=== PATIENT | female | born 1995 | race African-American/Black ===

== ENCOUNTER 2019-07-02 00:47 | Emergency (ER) | payer SELFPAY ==
--- NOTE | ~2019-07-02 | US_ITS ---
EXAMINATION: US OB <= 14 weeks fetus DATE: 07/02/2019 03:03 INDICATION: Vaginal bleeding during first trimester of . TECHNIQUE: Real-time pelvic ultrasound utilizing both a transvaginal and transabdominal probe was pe rformed. The interpreting radiologist was not present for the study. COMPARISON: None. FINDINGS: The uterus measures 10.2 x 8.1 x 8.9 cm. There is an intrauterine gestational sac. A single fetus is identified. The crown rump length measures 4.3, which correlates with an estimated gestational age o f 11 weeks and 1 days. heart motion is identified measuring 161 beats per minute (bpm) by M-mod e Doppler.There are couple small subchorionic hematomas which measure 14 x 7 x 6 mm and 7 x 6 x 3 mm. The right ovary is not visualized. The left ovary measures 2.2 x 1.2 x 1.2 cm. Vascular flow at the l eft ovary on color Doppler. There is no free fluid in the pelvis. IMPRESSION: 1. Single living fetus with heart of 161 bpm. 2. Gestational age by ultrasound of 11 weeks 1 day(s) +/- 7 day(s) with ultrasound estimated date of delivery (DELFINO) of 01/20/2020. 3. A couple small subchorionic hematomas. Reviewed, dictated and finalized at location A. IMPRESSION: 1. Single living fetus with heart of 161 bpm. 2. Gestational age by ultrasound of 11 weeks 1 day(s) +/- 7 day(s) with ultras ound estimated date of delivery (DELFINO) of 01/20/2020. 3. A couple small subchorionic hematomas.
--- NOTE | 2019-07-02 00:49 | ED.GENADULT ---
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 Patient believes she is approximately 2 months . 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 Patient has history of 2 planned abortions. Patient developed acute onset of bright red vaginal bleeding this evening. No recent falls, trauma or recent vaginal intercourse. Patient states she was treated for bacterial vaginosis last week at an urgent care. She denies any pelvic pain, back pain, dysuria or frequency. No nausea or vomiting. Related Data Allergies Allergy/AdvReac Type Severity Reaction Status Date / Time No Known Allergies Allergy Verified 07/02/19 00:59 Review of Systems Review of Systems: Narrative: CONSTITUTIONAL: Denies fever, chills, or sweats. ENT: Denies rhinorrhea, congestion, sore throat, or otalgia. CARDIOVASCULAR: Denies chest pain, palpitations, or edema. RESPIRATORY: Denies cough or dyspnea. GASTROINTESTINAL: Denies abdominal pain, nausea, vomiting, or diarrhea. GENITOURINARY: Denies dysuria or hematuria. Reports vaginal bleeding. SKIN: Denies rash or itching. MUSCULOSKELETAL: Denies back pain, joint pain, or myalgia. NEUROLOGIC: Denies headache, numbness, or weakness. [facility] Past Medical History Medical History (Updated 07/02/19 @ 03:23 by Nicky Power MD) history Bacterial vaginosis Surgical History Surgical History (Updated 07/02/19 @ 03:16 by Nicky Power MD) No pertinent past surgical history Social History Social History (Updated 07/02/19 @ 03:17 by Nicky Power MD) Smoking status: Never smoker Alcohol intake: never Substance use: never Living arrangements: with family Gender identity (if verbalized by the patient): Female Exam Narrative: Exam Narrative: GENERAL: Awake, alert, conversant HEAD: Normocephalic, atraumatic. EYES: PERRLA and EOMI. ENT: Nares clear, no rhinorrhea or epistaxis. Mucous membranes moist. NECK: Supple. CHEST: No respiratory distress, breathing even and non labored HEART: Regular rate, sinus rhythm ABDOMEN:Non distended, non tender Pelvic exam: Labia majora and minora normal without lesions. Vagina with blood present. No large blood clots. Cervix is not dilated. No visualized products of conception. No cervical motion tenderness. No adnexal tenderness or fullness bilaterally. No discharge present. EXTREMITIES: Normal range of motion. No edema. SKIN: Warm, dry, no rash. NEURO:No focal deficits. Alert and oriented x3 Course Vital Signs Vital signs: Vital Signs Temperature 36.9 C 07/02/19 00:57 Pulse Rate 70 07/02/19 00:57 Respiratory Rate 19 07/02/19 00:57 Blood Pressure 130/77 07/02/19 00:57 Pulse Oximetry 100 07/02/19 00:57 Temperature 36.9 C 07/02/19 00:57 Pulse Rate 74 07/02/19 02:58 Respiratory Rate 19 07/02/19 02:58 Blood Pressure 115/67 07/02/19 02:58 Pulse Oximetry 100 07/02/19 02:58 Medical Decision Making [facility] Narrative Medical decision making narrative: Patient presented for evaluation in the setting of vaginal bleeding in first trimester . At the time of initial assessment, ABCs are intact and vital signs are stable. Pelvic exam shows minimal bleeding, no brisk bleeding, closed cervix without evidence of products of conception. Patient has no pain. Laboratory results show mild anemia which patient reports she has a history of. No thrombocytopenia. Patient has O+ blood type, will not require RhoGam. No signs of cervicitis. No UTI. Patient was subchorionic hematoma which is likely the cause of her bleeding. Patient was advised pelvic rest, no vaginal intercours
[2019-07-02 00:57] VITALS: BP 130/77; PULSE 70; RESP 19; TEMP 36.9; O2SAT 100
[2019-07-02 01:08] LABS: Basophils Absolute Auto 0.1 K/mm3 (0.0-0.1); Basophils Percent Auto 0.4 % (0.2-1.2); Eosinophils Absolute Auto 0.2 K/mm3 (0-0.3); Eosinophils Percent Auto 1.8 % (0-4.4); Hematocrit 33.2 % (37.0-47.0); Hemoglobin 10.5 g/dL (12.0-15.0); Immature Granulocyte Absolute 0.06 K/mm3 (0.00-0.031); Immature Granulocyte Percent A 0.5 % (0-0.5); Lymphocytes Absolute Auto 3.87 K/mm3 (0.9-3.2); Mean Corpuscular HGB Conc 31.6 g/dl (32-36); Mean Corpuscular Hemoglobin 25.6 pg (26-34); Mean Platelet Volume 12.2 fl (7.4-10.4); Monocytes Percent Auto 8.3 % (2.6-8.5); Neutrophils Absolute Auto 7.2 K/mm3 (1.3-6.7); Platelet Count Result 227 k/mm3 (150-375); Red Cell Distribution Width 16.8 % (11.5-14.5); White Blood Count 12.5 K/mm3 (4.5-10.0)
[2019-07-02 01:20] LABS: Alanine Aminotransferase 11 U/L (4-35); Albumin Level 4.6 g/dL (3.5-5.1); Alkaline Phosphatase 56 U/L (38-126); Aspartate Amino Transferase 20 U/L (14-36); Bilirubin,Total 0.1 mg/dL (0.2-1.3); Blood Urea Nitrogen 14 mg/dL (7-17); Calcium 10.4 mg/dL (8.4-10.2); Carbon Dioxide 23 mmol/L (22-30); Chloride 101 mmol/L (98-107); Estimated CRCL calculation 105 ml/min; Estimated Glomerular Filt Rate > 60; Glucose 88 mg/dL (65-105); Potassium 3.4 mmol/L (3.4-5.0); Sodium 135 mmol/L (137-145)
[2019-07-02] MEDS: SODIUM CHLORIDE 0.9% IV 1,000 ML 999 ML IV CONT (01:24)
[2019-07-02 01:33] LABS: Add Urine Microscopic? YES; Appearance Urine Clear (Clear); Bacteria Urine Trace /hpf; Bilirubin Urine Negative (Negative); Blood Urine 2+ (Negative); Color Urine Yellow (Yellow); Glucose Urine UA Negative (Negative); Ketones Urine Trace mg/dL (Negative); Leukocyte Esterase Ur Negative LEU/UL (Negative); Mucus Urine Rare /lpf; Nitrate Urine Negative (Negative); Protein Urine 1+ mg/dL (Negative); RBC Urine >75 /hpf (0-2); Squamous Epithelial Cell Urine Many /hpf (Few); Urobilinogen Urine Negative mg/dL (<2.0)
[2019-07-02 01:44] LABS: Specific Grav Ur 1.034 (1.001-1.035)
[2019-07-02 02:58] VITALS: BP 115/67; PULSE 74; RESP 19; O2SAT 100
[2019-07-02 03:33] VITALS: BP 116/76; PULSE 74; RESP 19; TEMP 36.7; O2SAT 100
== END 2019-07-02 03:35 | disposition home or self-care (01) ==
PROVIDERS: Emergency Provider Emergency Medicine
DX: O46.91 Antepartum hemorrhage, unspecified, first trimester (principal); Z3A.11 11 weeks gestation of pregnancy
CPT/HCPCS: 36415; 76801; 80053; 81001; 81025; 84702; 85025; 85461; 87070; 87491; 87591; 87808; 96360; 99284; J7030

== ENCOUNTER 2019-08-20 13:33 | Outpatient (CLI) | payer BC, SELFPAY ==
[2019-08-20 14:46] LABS: Hematocrit 30.2 % (37.0-47.0); Hemoglobin 9.8 g/dL (12.0-15.0); Mean Corpuscular HGB Conc 32.5 g/dl (32-36); Mean Corpuscular Hemoglobin 26.3 pg (26-34); Mean Platelet Volume 12.1 fl (7.4-10.4); Platelet Count Result 208 k/mm3 (150-375); Red Blood Count 3.73 M/mm3 (4.2-5.4); Red Cell Distribution Width 15.3 % (11.5-14.5); White Blood Count 10.2 K/mm3 (4.5-10.0)
[2019-08-20 16:04] LABS: Hepatitis B Surface Antigen Negative (Negative); Rubella IgG Antibody 17.2 IU/ML
[2019-08-20 16:08] LABS: HIV 1/2 Ab P24 Ag Result Negative (Negative)
[2019-08-21 06:57] LABS: Rapid Plasma Reagin Non-Reactive (NonReactive)
[2019-08-25 12:48] LABS: Varicella IgG Antibody <135.00 Index (>=165.00); Varicella IgM Antibody 1.09 (<=0.90)
[2019-08-28 21:52] LABS: CF Result NEGATIVE (NEGATIVE); Ethnicity NG
== END 2019-08-20 13:34 | disposition home or self-care (01) ==
PROVIDERS: Visit Provider Obstetrics & Gynecology
DX: Z34.92 Encounter for supervision of normal pregnancy, unspecified, second trimester (principal); Z3A.00 Weeks of gestation of pregnancy not specified
CPT/HCPCS: 36415; 81220; 81329; 84702; 85027; 85461; 85660; 86592; 86703; 86747; 86762; 86787; 87086; 87088; 87340; G0432

== ENCOUNTER 2019-10-27 14:03 | Observation (INO) | payer BC, SELFPAY ==
[2019-10-27] VITALS (8 sets, daily range): BP systolic 114–148; BP diastolic 57–81; PULSE 73–78; BMI 24.5
--- NOTE | 2019-10-27 14:30 | OBADM ---
This patient, Dilcia Villafana, admitted to the OB room OB Post 113 for observation. Patient/family oriented to hospital policies and general routines including ID bracelet, bed and alarms, visiting hours, pain management, procedures, bathroom and other care routines, personal items, smoking policy, room service/diet, and visiting hours. Patient/Family are encouraged to report perceived risks to care and to ask questions if they do not understand what they are told or what they should do.
[2019-10-27 15:44] LABS: Add Urine Microscopic? YES; Appearance Urine Clear (Clear); Bacteria Urine Trace /hpf; Bilirubin Urine Negative (Negative); Blood Urine Negative (Negative); Color Urine Yellow (Yellow); Glucose Urine UA Negative (Negative); Ketones Urine Negative (Negative); Leukocyte Esterase Ur Negative LEU/UL (NEGATIVE); Mucus Urine Rare /lpf; Nitrate Urine Negative (Negative); Protein Urine 1+ mg/dL (Negative); Squamous Epithelial Cell Urine Few /hpf (Few); Urobilinogen Urine Negative mg/dL (<2.0); WBC Urine 0-3 /hpf (0-3)
[2019-10-27 15:54] LABS: Specific Grav Ur 1.032 (1.001-1.035)
--- NOTE | 2019-10-27 17:00 | P.PNOB_ITS ---
OB - Triage/Final Diagnosis Evaluation Laboratory results: Laboratory Tests 10/27/19 15:31 Urine Color Yellow Urine Appearance Clear Urine pH 6.0 Ur Specific [place] 1.032 Urine Protein 1+ H Urine Glucose (UA) Negative Urine Ketones Negative Ur Blood (Man) Negative Urine Nitrate Negative Urine Bilirubin Negative Urine Urobilinogen Negative Ur Leukocyte Esterase Negative Urine WBC 0-3 Ur Squamous Epith Cells Few Urine Bacteria Trace Urine Mucus Rare Final Diagnosis (1) Abdominal pain affecting , antepartum: Code(s): O26.899 - Other specified related conditions, unspecified trimester; R10.9 - Unspecified abdominal pain Status: Acute
== END 2019-10-27 16:35 | disposition home or self-care (01) ==
PROVIDERS: Admitting Provider Obstetrics & Gynecology; Visit Provider Obstetrics & Gynecology
DX: O26.892 Other specified pregnancy related conditions, second trimester (principal); R10.9 Unspecified abdominal pain; Z3A.27 27 weeks gestation of pregnancy
CPT/HCPCS: 81001; 87086; 87088; G0378; G0379

== ENCOUNTER 2019-11-17 11:12 | Outpatient (CLI) | payer BC, SELFPAY ==
[2019-11-17 13:36] LABS: Hematocrit 28.8 % (37.0-47.0); Hemoglobin 8.9 g/dL (12.0-15.0); Mean Corpuscular HGB Conc 30.9 g/dl (32-36); Mean Corpuscular Hemoglobin 24.9 pg (26-34); Mean Corpuscular Volume 80.7 fl (80-100); Mean Platelet Volume 12.5 fl (7.4-10.4); Platelet Count Result 213 k/mm3 (150-375); Red Blood Count 3.57 M/mm3 (4.2-5.4); Red Cell Distribution Width 15.5 % (11.5-14.5); White Blood Count 8.9 K/mm3 (4.5-10.0)
[2019-11-17 13:51] LABS: Glucose 1 Hour PP 50gm Dose 74 mg/dL
[2019-11-17 14:28] LABS: HIV 1/2 Ab P24 Ag Result Negative (Negative)
== END 2019-11-17 11:13 | disposition home or self-care (01) ==
PROVIDERS: Visit Provider Obstetrics & Gynecology
DX: Z34.92 Encounter for supervision of normal pregnancy, unspecified, second trimester (principal); Z3A.00 Weeks of gestation of pregnancy not specified
CPT/HCPCS: 36415; 82947; 85027; 86703; G0432

== ENCOUNTER 2020-01-17 23:24 | Observation (INO) | payer BC, SELFPAY ==
--- NOTE | 2020-01-17 23:40 | PM.OBTRLD ---
OB - Triage/Final Diagnosis Final Diagnosis (1) False labor after 37 completed weeks of gestation: Code(s): O47.1 - False labor at or after 37 completed weeks of gestation Status: Acute
--- NOTE | 2020-01-18 03:06 | LDADM ---
This patient, Dilcia Villafana, was admitted to Labor/Delivery/Recovery 107 on 01/17/20 at 23:24. Plans for labor, pain management and were discussed with patient. Patient/family oriented to hospital policies and general routines including ID bracelet, bed and alarms, visiting hours, pain management, procedures, bathroom and other care routines, personal items, smoking policy, room service/diet and guest tray routines, infant security routines, and visiting hours. Patient/Family are encouraged to report perceived risks to care and to ask questions if they do not understand what they are told or what they should do. See OBIX for further documentation.
== END 2020-01-18 03:29 | disposition home or self-care (01) ==
PROVIDERS: Admitting Provider Obstetrics & Gynecology; Visit Provider Obstetrics & Gynecology
DX: O47.9 False labor, unspecified (principal); Z3A.00 Weeks of gestation of pregnancy not specified
CPT/HCPCS: G0378; G0379

== ENCOUNTER 2020-01-18 11:38 | Inpatient (IN) | payer BC, SELFPAY ==
[2020-01-18] VITALS (62 sets, daily range): BP systolic 67–136; BP diastolic 42–80; PULSE 66–106; RESP 18; TEMP 36.6–37; O2SAT 91–100
[2020-01-18 12:23] LABS: Basophils Percent Auto 0.1 % (0.2-1.2); Hematocrit 35.4 % (37.0-47.0); Hemoglobin 11.7 g/dL (12.0-15.0); Immature Granulocyte Percent A 0.7 % (0-0.5); Immature Platelet Fraction Pct 11.8 % (0.9-11.2); Lymphocytes Absolute Auto 1.01 K/mm3 (0.9-3.2); Lymphocytes Percent Auto 7.2 % (18.3-44.2); Mean Corpuscular HGB Conc 33.1 g/dl (32-36); Mean Corpuscular Hemoglobin 26.7 pg (26-34); Mean Corpuscular Volume 80.8 fl (80-100); Monocytes Absolute Auto 0.3 K/mm3 (0.1-0.6); Monocytes Percent Auto 2.2 % (2.6-8.5); Neutrophils Absolute Auto 12.6 K/mm3 (1.3-6.7); Neutrophils Percent Auto 89.8 % (45.5-73.1); Platelet Count Result 187 k/mm3 (150-375); Red Blood Count 4.38 M/mm3 (4.2-5.4); Red Cell Distribution Width 20.8 % (11.5-14.5); White Blood Count 14.1 K/mm3 (4.5-10.0)
[2020-01-18] MEDS: LACTATED RINGERS 1,000 ML 125 ML IV CONT ×3 (12:28→14:00)
[2020-01-18] MEDS: fentaNYL CITRATE INJ (*CRX) 100 MCG/2 ML VIAL IV PUSH (12:29)
--- NOTE | 2020-01-18 13:01 | WPDANESEPP ---
Anes - Eval Pre Procedure Procedure: labor epidural Date/Time: 01/18/20 13:01 Surgeon: Chelsey Paulino Preop Diagnosis: pain during labor Pre Op Diagnosis: Contractions Patient Data Age: 24 Gender: F Height: Weight: Last Vital Signs Pulse 92 01/18/20 13:01 BP 121/63 01/18/20 13:01 Pulse Ox 100 01/18/20 13:01 Allergies Allergy/AdvReac Type Severity Reaction Status Date / Time No Known Allergies Allergy Verified 07/02/19 00:59 Home Medications Medication Instructions Recorded Confirmed Type PNV cmb#95-ferrous fumarate-FA 1 tablet PO DAILY 01/16/20 01/16/20 History [] albuterol sulfate 2 puff INHALATION QID PRN 01/16/20 01/16/20 History famotidine 20 mg PO DAILY 01/16/20 01/16/20 History ferrous sulfate [Iron (ferrous 325 mg PO TID 01/16/20 01/16/20 History sulfate)] magnesium oxide 400 mg PO DAILY 01/16/20 01/16/20 History ondansetron HCl [Zofran] 4 mg PO Q8H PRN 01/16/20 01/16/20 History Laboratory Tests 01/18/20 01/18/20 01/18/20 12:13 12:13 12:13 WBC 14.1 K/mm3 H K/mm3 (4.5-10.0) RBC 4.38 M/mm3 M/mm3 (4.2-5.4) Hgb 11.7 g/dL L g/dL (12.0-15.0) Hct 35.4 % L % (37.0-47.0) MCV 80.8 fl fl (80-100) MCH 26.7 pg pg (26-34) MCHC 33.1 g/dl g/dl (32-36) RDW 20.8 % H % (11.5-14.5) Plt Count 187 k/mm3 k/mm3 (150-375) MPV TNP Immature Gran % (Auto) 0.7 % H % (0-0.5) Neut % (Auto) 89.8 % H % (45.5-73.1) Lymph % (Auto) 7.2 % L % (18.3-44.2) [place] % (Auto) 2.2 % L % (2.6-8.5) Eos % (Auto) 0.0 % % (0-4.4) Baso % (Auto) 0.1 % L % (0.2-1.2) Lymph # (Auto) 1.01 K/mm3 K/mm3 (0.9-3.2) [place] # (Auto) 0.3 K/mm3 K/mm3 (0.1-0.6) Eos # (Auto) 0.0 K/mm3 K/mm3 (0-0.3) Baso # (Auto) 0.0 K/mm3 K/mm3 (0.0-0.1) Abs Immat Gran (auto) 0.10 K/mm3 H K/mm3 (0.00-0.031) Absolute Neuts (auto) 12.6 K/mm3 H K/mm3 (1.3-6.7) Absolute Nucleated RBC 0.0 K/mm3 K/mm3 (0.0-0.012) Nucleated RBC % 0.0 % % (0.0-0.2) % Immature Plt Fraction 11.8 % H % (0.9-11.2) RPR Pending Blood Type O Positive Antibody Screen Negative : gestational age (DELFINO 01/19) Patient hx anesthesia problems: none Family hx anesthesia problems: none PMFSH Past Medical History Medical History (Updated 01/18/20 @ 13:02 by Virgil Valencia CRNA) history Asthma Bacterial vaginosis Surgical History Surgical History (Updated 07/02/19 @ 03:16 by Nicky Power MD) No pertinent past surgical history Family History Family History (Updated 01/16/20 @ 12:14 by Priya Child RN) Mother Hypotension Father Colon cancer Social History Social History (Updated 07/02/19 @ 03:17 by Nicky Power MD) Smoking status: Never smoker Alcohol intake: never Substance use: never Gender identity (if verbalized by the patient): Female Spiritual care concerns: No Exam Day of Procedure 01/18/20 13:01 Patient weight: normal Heart: regular rate and rhythm Lungs: clear to auscultation and normal air movement Neurological: alert and oriented
--- NOTE | 2020-01-18 13:19 | LDADM ---
This patient, Dilcia Villafana, was admitted to Labor/Delivery/Recovery 106 on 01/18/20 at 11:38. Plans for labor, pain management and were discussed with patient. Patient/family oriented to hospital policies and general routines including ID bracelet, bed and alarms, visiting hours, pain management, procedures, bathroom and other care routines, personal items, smoking policy, room service/diet and guest tray routines, infant security routines, and visiting hours. Patient/Family are encouraged to report perceived risks to care and to ask questions if they do not understand what they are told or what they should do. See OBIX for further documentation.
--- NOTE | 2020-01-18 13:56 | PM.IMHP ---
H&P: HPI History of Present Illness Date/Time: 01/18/20 13:56 Chief complaint: Contractions Narrative: Dilcia Villafana is a 24 yo @ 39.5wks (DELFINO 01/20/20) who presented to L&D in active labor; 6cm dilated, requesting epidural. She denies vaginal bleeding or leakage of fluid; good movement. She has had regular care w/o issues. Her is complicated by: - Anemia on iron BID - Varicella non-immune Review of Systems Constitutional: Constitutional: Denies chills and Denies fever(s) Eyes: Eyes: Denies blurry vision Cardiovascular: Cardiovascular: Denies chest pain and Denies rapid heart rate Respiratory: Respiratory: Denies cough and Denies dyspnea Gastrointestinal: Gastrointestinal: Reports abdominal pain, Denies nausea and Denies vomiting Genitourinary: Genitourinary: Denies vaginal discharge Neurologic: Denies headache(s) Psychiatric: Psychiatric: Denies anxiety and Denies depression [facility] Past Medical History Medical History history Asthma Bacterial vaginosis Surgical History Surgical History No pertinent past surgical history Family History Family History Mother Hypotension Father Colon cancer Social History Social History Smoking status: Never smoker Alcohol intake: never Substance use: never Gender identity (if verbalized by the patient): Female Spiritual care concerns: No Meds Home Medications and Allergies Home Medications Medication Instructions Recorded Confirmed Type PNV cmb#95-ferrous fumarate-FA 1 tablet PO DAILY 01/16/20 01/16/20 History [] albuterol sulfate 2 puff INHALATION QID PRN 01/16/20 01/16/20 History famotidine 20 mg PO DAILY 01/16/20 01/16/20 History ferrous sulfate [Iron (ferrous 325 mg PO TID 01/16/20 01/16/20 History sulfate)] magnesium oxide 400 mg PO DAILY 01/16/20 01/16/20 History ondansetron HCl [Zofran] 4 mg PO Q8H PRN 01/16/20 01/16/20 History Allergies Allergy/AdvReac Type Severity Reaction Status Date / Time No Known Allergies Allergy Verified 07/02/19 00:59 Vital Signs Vital Signs - 24 hr 01/18/20 12:08 01/18/20 12:16 01/18/20 12:31 Pulse Rate 77 81 76 Blood Pressure 119/69 122/67 128/80 Pulse Oximetry 01/18/20 12:46 01/18/20 12:51 01/18/20 12:52 Pulse Rate 87 80 79 Blood Pressure 136/69 130/75 130/67 Pulse Oximetry 01/18/20 12:53 01/18/20 12:56 01/18/20 12:58 Pulse Rate 84 84 90 Blood Pressure 122/65 117/69 119/59 L Pulse Oximetry 100 01/18/20 13:01 01/18/20 13:03 01/18/20 13:06 Pulse Rate 92 79 86 Blood Pressure 121/63 121/65 114/60 Pulse Oximetry 100 100 01/18/20 13:08 01/18/20 13:11 01/18/20 13:13 Pulse Rate 93 88 84 Blood Pressure 116/65 120/67 111/72 Pulse Oximetry 100 01/18/20 13:16 01/18/20 13:18 01/18/20 13:21 Pulse Rate 86 82 77 Blood Pressure 112/64 114/65 114/57 L Pulse Oximetry 100 100 01/18/20 13:23 01/18/20 13:26 01/18/20 13:28 Pulse Rate 84 81 84 Blood Pressure 115/69 117/62 112/68 Pulse Oximetry 100 01/18/20 13:31 01/18/20 13:36 01/18/20 13:41 Pulse Rate 85 Blood Pressure 67/51 L Pulse Oximetry 91 100 99 01/18/20 13:46 01/18/20 13:51 Pulse Rate 89 Blood Pressure 114/72 Pulse Oximetry 96 96 Exam Const: General: cooperative, healthy appearing, comfortable and no acute distress Resp: Effort & Inspection: normal respiratory effort and able to speak in complete sentences Cardio: Rate: regular rate : Other: FHT's: 130's/ mod rudolph/ + accels/ no decels - cat 1 TOCO: ctx's q 3-5min Cervix: 7/C/0 Membranes: AROM, clear 1345 Postion: cephalic Skin: General skin exam: normal color Neuro: General: patient oriented x3 Extrem: General: normal
[2020-01-18] MEDS: OXYTOCIN 30 UNITS/NS 500 ML 30 UNITS/500 ML BAG IV CONT (13:57)
--- NOTE | 2020-01-18 14:03 | WPDHPUPDATE1 ---
History and Physical Update Update Date/Time: 01/18/20 14:03 History and Physical has been reviewed, including an updated exam of the patient. There are NO changes in the patient's condition. Risks, benefits, and alternatives have been discussed and questions answered. Patient agrees to proceed with procedure.
--- NOTE | 2020-01-18 15:22 | PM.OBPRVD ---
OB - Delivery Note Procedure Delivery date: 01/18/20 Intrapartal events: None Induction method: none Delivery augmentation: rupture of membranes and pitocin Delivery monitor: external FHT and external uterine Route of delivery: Laceration Description: None Estimated blood loss (mL): 150 Anesthesia type: Epidural Disposition: floor Narrative: Patient rapidly progressed to complete dilation. With good maternal effort, she delivered the head over intact perineum after approximately 5 contractions. The shoulders and body delivered without complications. The had spontaneous cry and was immediately placed skin to skin. The umbilical cord was then clamped and cut. A segment of cord was collected for cord gases. The remaining cord blood was collected for typing. With Pitocin running and gentle downward traction on the cord, the placenta delivered without complications. Bimanual exam was performed and good uterine tone and minimal bleeding were noted. The cervix, vagina, perineum were examined and no lacerations were noted. Sponge, lap, needle, instrument counts were correct at the end of the procedure. Mom and baby were left bonding in the birthing suite in a stable condition. Baby Date of : 01/18/20 Time of : 15:06 Weeks of gestation at delivery: 39 gender: Female Weight (pounds): 6 Weight (ounces): 2 presentation: vertex position: Right Occiput Anterior Placenta delivery description: Expressed cord vessel description: 3 Vessels score one minute: 9 score five minutes: 9
[2020-01-18] MEDS: OXYTOCIN 30 UNITS/NS 500 ML 30 UNITS/500 ML BAG 125 UNITS IV CONT (15:45)
[2020-01-18] MEDS: WITCH HAZEL 40 PADS 1 PAD TOPICAL (18:49)
[2020-01-18] MEDS: BENZOCAINE 20% AER SPR (*SP) 56 GM CAN 1 SPRAY TOPICAL (18:49)
[2020-01-18] MEDS: IBUPROFEN 600 MG TABLET PO (19:29)
[2020-01-19] MEDS: IBUPROFEN 600 MG TABLET PO ×2 (02:18→17:10)
[2020-01-19 05:04] LABS: Hematocrit 28.2 % (37.0-47.0); Hemoglobin 9.2 g/dL (12.0-15.0)
[2020-01-19 07:02] LABS: Rapid Plasma Reagin Non-Reactive (NonReactive)
[2020-01-19] MEDS: DOCUSATE SODIUM 100 MG CAPSULE PO ×2 (07:31→17:10)
[2020-01-19] MEDS: POLYSACCHARIDE IRON COMPLEX 150 MG CAPSULE PO ×2 (07:31→17:10)
[2020-01-19] MEDS: MULTIVIT/MIN/PREN/FOL AC/IRON TABLET 1 TAB PO (07:31)
[2020-01-19] MEDS: FAMOTIDINE 20 MG TABLET PO (07:31)
[2020-01-19] MEDS: ACETAMINOPHEN 325 MG TABLET 650 MG PO ×2 (07:31→22:14)
--- NOTE | 2020-01-19 08:05 | PC.NURSE ---
Consult with pt., mother reports she is attempting infant to breast for some feedings, she is pumping at times. Mother states her plan was to breast and bottle feed. Mother has been independently putting to breast, reporting will not latch. Offered assist with latch and pumping. Stressed the importance of breast stimulation for milk supply. Reviewed feeding cues, frequencies, duration of feedings, feeding elimination flow sheet, and signs of adequate intake. Mother has not been waking to feed as required, reporting infant is sleepy and not waking. Advised infant must be awoken to feed every 2-3 hours if and 3-4 hours if bottle feeding. Mother does not want assist with this feeding reporting she will bottle feed and breastfeed next feeding. Mother denies the need for assist with bottle feeding. Demonstrated stimulation techniques to wake for feeding. Assisted with infant to breast. Requested mother call out next feeding for assist with latch and to review pumping.
[2020-01-19 08:30] VITALS: BP 115/71; PULSE 67; RESP 16; TEMP 36.6; O2SAT 100
--- NOTE | 2020-01-19 10:40 | PM.OBPNVD ---
OB - PN: Subj Subjective Date/time seen: 01/19/20 10:28 PPD#1 Dilcia reports doing well today. She reports her pain is well controlled with oral meds. She is tolerating regular diet. 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 She has ambulated w/o signs of anemia. She has voided and passed flatus. She is breast and bottle feeding. She would like to go home today. She denies N/V, fever, chills, CP, SOB, LOPEZ, vision changes, dizziness or palpitations. OB - PN: Obj Data Labs CBC & Chem 7: 01/19/20 04:06 Labs: Laboratory Results - last 24 hr 01/18/20 01/18/20 01/18/20 12:13 12:13 12:13 WBC 14.1 H RBC 4.38 Hgb 11.7 L Hct 35.4 L MCV 80.8 MCH 26.7 MCHC 33.1 RDW 20.8 H Plt Count 187 MPV TNP Immature Gran % (Auto) 0.7 H Neut % (Auto) 89.8 H Lymph % (Auto) 7.2 L [place] % (Auto) 2.2 L Eos % (Auto) 0.0 Baso % (Auto) 0.1 L Lymph # (Auto) 1.01 [place] # (Auto) 0.3 Eos # (Auto) 0.0 Baso # (Auto) 0.0 Abs Immat Gran (auto) 0.10 H Absolute Neuts (auto) 12.6 H Absolute Nucleated RBC 0.0 Nucleated RBC % 0.0 % Immature Plt Fraction 11.8 H RPR Non-reactive Blood Type O Positive Antibody Screen Negative 01/19/20 04:06 WBC RBC Hgb 9.2 L Hct 28.2 L MCV MCH MCHC RDW Plt Count MPV Immature Gran % (Auto) Neut % (Auto) Lymph % (Auto) [place] % (Auto) Eos % (Auto) Baso % (Auto) Lymph # (Auto) [place] # (Auto) Eos # (Auto) Baso # (Auto) Abs Immat Gran (auto) Absolute Neuts (auto) Absolute Nucleated RBC Nucleated RBC % % Immature Plt Fraction RPR Blood Type Antibody Screen OB - PN A/P Assessment and Plan (1) (normal spontaneous vaginal delivery): Code(s): O80 - Encounter for full-term uncomplicated delivery Status: Acute Plan day: 1 Plan: routine care and discharge home Comments: - meeting all milestones - Will discharge home today; f/u in clinic in 4 wks; call if issues arise - Return precautions discussed: pain/n/v, fever, bleeding, HTN - Pelvic rest, take medications as prescribed Time Spent With Patient Time: Total time spent is greater than 50% in coordination of care (as documented) at patient's floor/unit and/or counseling patient: Review of Systems Review of Systems: All systems reviewed & are unremarkable except as noted in HPI and below (HPI) Exam Const: General: cooperative, healthy appearing, comfortable and no acute distress Nutritional Appearance: average body habitus Resp: Effort & Inspection: normal respiratory effort and able to speak in complete sentences Auscultation: clear to auscultation bilaterally Cardio: Rate: regular rate GI: Inspection: non-distended GI Palp: No abdominal tenderness and Yes Soft to palpation Auscultation: normal bowel sounds : Other: fundus firm below umbilicus, normal lochia Skin: General skin exam: normal color Neuro: General: patient oriented x3 Extrem: General: normal to inspection Psych: Appearance: grossly normal Affect: normal affect Attitude: cooperative
--- NOTE | 2020-01-19 12:38 | P.DS_ITS ---
DS: Admitting Diagnosis Admitting Diagnosis Admitting Diagnosis: Contractions DS: Discharge Diagnosis Discharge Diagnosis (1) (normal spontaneous vaginal delivery): Code(s): O80 - Encounter for full-term uncomplicated delivery Status: Acute OB - DS: Summary OB Procedures : None OB Procedures Intrapartum: Spontaneous Vag Delivery OB Procedures: : None Peripartum Data Delivery Method: Natural Vaginal Laceration Description: None complications: none 1: Gender: Female Disposition of : home Status at Discharge Functional status at discharge: independent ambulation Overall status at discharge: patient is back to baseline Time Spent with Patient Time attestation: Total time spent providing and/or coordinating discharge services: Time spent: Less than 30 minutes Exam Const: General: cooperative, healthy appearing, comfortable and no acute distress Resp: Effort & Inspection: normal respiratory effort and able to speak in complete sentences Auscultation: clear to auscultation bilaterally Cardio: Rate: regular rate GI: Inspection: normal to inspection and non-distended GI Palp: Yes Soft to palpation and No Tenderness to palpation present (GI) Auscultation: normal bowel sounds : Other: fndus firm below umbilicus Skin: General skin exam: normal color Neuro: General: patient oriented x3 Psych: Appearance: grossly normal Affect: normal affect Attitude: cooperative DS: Data Data Completed and Pending Labs on day of discharge: Labs from last 24 hours 01/19/20 01/18/20 01/18/20 04:06 12:13 12:13 Hgb 9.2 L Hct 28.2 L RPR Non-reactive Blood Type O Positive Antibody Screen Negative Discharge Plan Discharge Attending physician on discharge: Chelsey Paulino Discharging Clinician: Chelsey Paulino Anticipated Discharge Date/Time: 01/20/20 08:00 Patient Disposition: Home, Self-Care Activity: pelvic rest Diet: regular Patient Instructions: Antibiotic Form Stand Alone Forms: General Discharge Information Follow-up/Referrals: Chelsey Paulino MD [Physician] - 4 Weeks Discharge Medications: New acetaminophen [Mapap (acetaminophen)] 325 mg Tablet 650 mg PO Q6H PRN (Reason: Mild Pain (1-3) Or Headache) 10 Days Qty: 40 RF: 0 ibuprofen 600 mg Tablet 600 mg PO Q6H PRN (Reason: Cramping) 10 Days Qty: 40 RF: 0 Continued albuterol sulfate 90 mcg/actuation Hfa Aerosol Inhaler 2 puff INHALATION QID PRN (Reason: Wheezing) RF: 0 PNV cmb#95-ferrous fumarate-FA [] 28 mg iron- 800 mcg Tablet 1 tablet PO DAILY 30 Days Qty: 30 RF: 0 Changed ferrous sulfate [Iron (ferrous sulfate)] 325 mg (65 mg iron) Tablet 325 mg PO DAILY 30 Days Qty: 30 RF: 0 Discontinued ondansetron HCl [Zofran] 4 mg Tablet 4 mg PO Q8H PRN (Reason: Nausea) RF: 0 famotidine 20 mg Tablet 20 mg PO DAILY RF: 0 magnesium oxide 400 mg magnesium Tablet 400 mg PO DAILY RF: 0 Date of admission: 01/18/20 11:38 Primary Care Provider: PHYSICIAN,INFORMATION SYSTEMS SECURITY ANALYST Admitting Provider: Chelsey Paulino Attending physician on admission: Chelsey Paulino Condition: Stable
--- NOTE | 2020-01-19 14:35 | PC.NURSE ---
Mother called out for LC assist. Mother would like assist with obtaining a pump for home use. Mother states she will pump and bottle feed. Reviewed instructions breast pump care and usage, pumping schedule, nipple care, and collection and storage of breast milk. Encouraged [id number], breast massage and manual expression to stimulate supply. Assessed patient for correct flange size, placement and draw. Patient verbalizes and demonstrates understanding of instructions. Assisted with pump thru her insurance. Suggested to give at least 20 mls per feeding increasing as desires. Mother has been feeding required and waking to feed if needed, since earlier conversation. Infant is currently meeting outcomes for weight, output, jaundice and feeding frequencies. Mother states she feels confident to continue pump and bottle feed plan at home. Reviewed transition to breast milk, signs of adequate intake, and engorgement/relief. Instructed to call ICP if intake/output less than required. Reviewed regular medications mother is taking. Information provided per [facility]. Reviewed community resources on the [facility] website and in the Mom/Baby guide. Information on outpatient services provided. Mother has no further questions at this time.
[2020-01-19 20:00] VITALS: BP 110/60; PULSE 64; RESP 16; TEMP 37.1; O2SAT 100
[2020-01-20] MEDS: IBUPROFEN 600 MG TABLET PO (05:56)
[2020-01-20 08:40] VITALS: BP 114/76; PULSE 67; RESP 18; TEMP 37.5; O2SAT 100
[2020-01-20] MEDS: MULTIVIT/MIN/PREN/FOL AC/IRON TABLET 1 TAB PO (08:44)
[2020-01-20] MEDS: DOCUSATE SODIUM 100 MG CAPSULE PO (08:44)
[2020-01-20] MEDS: FAMOTIDINE 20 MG TABLET PO (08:45)
[2020-01-20] MEDS: POLYSACCHARIDE IRON COMPLEX 150 MG CAPSULE PO (08:45)
--- NOTE | 2020-01-20 09:17 | PC.NURSE ---
Patient viewed the discharge video Mother & Baby Care, The First Two Weeks . Patient was given the opportunity and encouraged to ask questions. Patient verbalized understanding of information shared and has been given the mother/baby guide for home reference.
[2020-01-23 11:25] VITALS: BP 113/68; PULSE 68; RESP 20; TEMP 36.6; O2SAT 100
--- NOTE | 2020-01-27 17:02 | PM.OBDSVD ---
DS: Admitting Diagnosis Admitting Diagnosis Admitting Diagnosis: Contractions DS: Discharge Diagnosis Discharge Diagnosis (1) (normal spontaneous vaginal delivery): Code(s): O80 - Encounter for full-term uncomplicated delivery Status: Acute (2) Active labor at term: Status: Acute OB - DS: Summary OB Procedures : None OB Procedures Intrapartum: Spontaneous Vag Delivery OB Procedures: : None Peripartum Data Delivery Method: Natural Vaginal Laceration Description: None complications: none Tell 1: Gender: Female Disposition of : home Status at Discharge Functional status at discharge: independent ambulation Overall status at discharge: patient is back to baseline Time Spent with Patient Time attestation: Total time spent providing and/or coordinating discharge services: Exam Const: General: cooperative, healthy appearing, comfortable and no acute distress Resp: Effort & Inspection: normal respiratory effort Auscultation: clear to auscultation bilaterally Cardio: Rate: regular rate GI: Inspection: normal to inspection and non-distended GI Palp: Yes Soft to palpation and No Tenderness to palpation present (GI) Auscultation: normal bowel sounds Skin: General skin exam: normal color Neuro: General: patient oriented x3 Extrem: General: normal to inspection Psych: Appearance: grossly normal Affect: normal affect Attitude: cooperative Discharge Plan Discharge Attending physician on discharge: Chelsey Paulino Discharging Clinician: Chelsey Paulino Anticipated Discharge Date/Time: 01/20/20 08:00 Patient Disposition: Home, Self-Care Activity: pelvic rest Diet: regular Discharge Instructions: Education: Mom and Baby Guide Given to: Mother Follow-Up: Call your delivering provider's office for an appointment to be seen in: 4 Weeks Mom and baby should come to the [facility] for the follow-up appointment. Appointment Date/Time: January 23, 2020 at 11:00 am What to expect at your follow-up visit: Physical Assessment Call [phone] if you are unable to keep your appointment time. BREAST CARE: * Wear a snug supportive bra. * For engorgement discomfort: Breast Feeding: * Apply warm moist washcloths * Express milk as needed to relieve engorgement * Wear loose clothing * For sore nipples: * Identify correct latch-on * Apply warm moist washcloths before and after nursing * Air dry nipples after nursing * May apply Lansinoh cream to nipples EPISIOTOMY/PERINEAL CARE: * Until bleeding stops, use your erin bottle after urinating * Change your pad frequently throughout the day * No tub baths until seen by your physician - You may shower ACTIVITY: * Rest as much as possible. * Do not exercise or lift anything heavier than your baby (such as laundry or other children.) * Avoid stairs or driving as much as possible. * Do not put anything into the vagina. No douching, tampons, or sexual activity until seen by physician. NOTIFY PHYSICIAN IF YOU HAVE ANY QUESTIONS OR IF ANY OF THE FOLLOWING SYMPTOMS OCCUR: * If your perineum becomes red, swollen, or more painful than what you have experienced in the hospital. * If your vaginal bleeding becomes foul smelling. * If your vaginal bleeding becomes more heavy than a period or if your bleeding changes from pink to bright red. However, you may pass an occasional walnut-sized clot once or twice for the first week . * If you experience a sharp, shooting pain in you calves. * If you discover a hard, reddened area on your breast or if you experience flu-like symptoms. DIET: * Eat regular, well-balanced meals. * Drink plenty of fluids daily. If , drink to thirst. Patient Instructions: Antibiotic Form Stand Alone Forms: General Discha
== END 2020-01-20 10:10 | disposition home or self-care (01) | DRG 807 ==
LOC: ANHLDR 12:23 → ANHOB2 19:13
PROVIDERS: Admitting Provider Obstetrics & Gynecology; Visit Provider Obstetrics & Gynecology
DX: O99.52 Diseases of the respiratory system complicating childbirth (principal); Z37.0 Single live birth; Z3A.39 39 weeks gestation of pregnancy; J45.909 Unspecified asthma, uncomplicated
CPT/HCPCS: 36415; 85014; 85018; 85025; 85055; 86592; 86850; 86900; 86901; A9270; J2590; J2795; J3010; J7120